=== PATIENT | female | born 1990 | race Two or more races ===

== ENCOUNTER 2018-03-14 14:04 | Emergency (ER) | payer OTHER ==
[2018-03-14] MEDS: ACETAMINOPHEN 500 MG TAB PO (15:01)
[2018-03-14 15:08] LABS: ADD MAN DIFF? NO
[2018-03-14 15:14] LABS: WHITE BLOOD COUNT 13.5 10^3/ul (4.8-10.8)
[2018-03-14 15:14] LABS: BASOPHIL # 0.1 10^3/ul (0.0-0.1); BASOPHILS % 0.4 % (0.0-2.0); EOSINOPHILS # 0.1 10^3/ul (0.0-0.5); EOSINOPHILS % 0.7 % (0.0-7.0); HEMATOCRIT 36.4 % (37.0-47.0); HEMOGLOBIN 12.5 g/dl (12.0-16.0); LYMPHOCYTES # 2.3 10^3/ul (0.8-2.9); LYMPHOCYTES % 16.8 % (15.0-51.0); MEAN CORPUSCULAR HEMOGLOBIN 31.9 pg (29.0-33.0); MEAN CORPUSCULAR HGB CONC 34.3 g/dl (32.0-37.0); MEAN CORPUSCULAR VOLUME 92.9 fl (82.0-101.0); MEAN PLATELET VOLUME 10.7 fl (7.4-10.4); MONOCYTES % 7.6 % (0.0-11.0); NEUTROPHILS % 74.1 % (39.0-77.0); PLATELET COUNT 218 10^3/UL (140-415); RED BLOOD COUNT 3.92 10^6/ul (4.20-5.40)
[2018-03-14 15:33] LABS: ADD UMIC YES; UR ASCORBIC ACID 40 mg/dL (NEGATIVE); UR BACTERIA FEW /HPF (NONE SEEN); UR BILIRUBIN (Dip) NEGATIVE (NEGATIVE); UR BLOOD (Dip) NEGATIVE (NEGATIVE); UR CLARITY CLOUDY (CLEAR); UR COLOR YELLOW (YELLOW); UR GLUCOSE (Dip) 1+ mg/dL (NEGATIVE); UR KETONES (Dip) NEGATIVE (NEGATIVE); UR LEUKOCYTE ESTERASE (Dip) NEGATIVE Leu/ul (NEGATIVE); UR MUCUS FEW /HPF (NONE SEEN); UR NITRITE (Dip) NEGATIVE (NEGATIVE); UR RBC 3 /HPF (0-5); UR SPECIFIC GRAVITY (Dip) 1.019 (1.003-1.030); UR SQUAMOUS EPITHELIAL CELL MODERATE /HPF (FEW); UR TOTAL PROTEIN (Dip) NEGATIVE (NEGATIVE); UR UROBILINOGEN (Dip) NEGATIVE (NEGATIVE); UR WBC 2 /HPF (0-5)
[2018-03-14 15:34] LABS: ALANINE AMINOTRANSFERASE 26 IU/L (13-69); ALBUMIN 3.5 g/dl (3.3-4.9); ALBUMIN/GLOBULIN RATIO 1.09; ALKALINE PHOSPHATASE 70 IU/L (42-121); ANION GAP 9 (5-13); ASPARTATE AMINO TRANSFERASE 27 IU/L (15-46); BILIRUBIN,INDIRECT 0.3 mg/dl (0-1.1); BILIRUBIN,TOTAL 0.3 mg/dl (0.2-1.3); BLOOD UREA NITROGEN 7 mg/dl (7-20); CALCIUM 8.7 mg/dl (8.4-10.2); CARBON DIOXIDE 21 mmol/L (21-31); CHLORIDE 105 mmol/L (97-110); CREATININE 0.57 mg/dl (0.44-1.00); Estimated GFR > 60 mL/min (>60); GLUCOSE 113 mg/dl (70-220); LIPASE 28 U/L (23-300); POTASSIUM 3.7 mmol/L (3.5-5.1); SODIUM 135 mmol/L (135-144); TOTAL PROTEIN 6.7 g/dl (6.1-8.1)
== END 2018-03-14 17:11 | disposition home or self-care (01) ==
LOC: FTE 14:04
DX: O26.892 Other specified pregnancy related conditions, second trimester (principal); O34.12 Maternal care for benign tumor of corpus uteri, second trimester; R10.9 Unspecified abdominal pain; Z3A.18 18 weeks gestation of pregnancy
CPT/HCPCS: 36415; 76805; 80053; 81001; 83690; 85025; 87086; 99284-25

== ENCOUNTER 2018-07-21 13:03 | Outpatient (CLI) | payer OTHER | END 2018-07-21 15:55 | disposition home or self-care (01) | LOC: OBT 13:03 → L-D 13:04 → OBT 15:55 | DX: O36.5930 Maternal care for other known or suspected poor fetal growth, third trimester, not applicable or unspecified (principal); Z3A.37 37 weeks gestation of pregnancy | CPT/HCPCS: 76815; 76818 ==

== ENCOUNTER 2018-08-10 20:44 | Inpatient (IN) | payer OTHER ==
[2018-08-10] MEDS ORDERED: CARBOPROST 250 MCG INJ IM (22:00)
[2018-08-10] MEDS ORDERED: MISOPROSTOL 200 MCG TAB PR (22:00)
[2018-08-10] MEDS ORDERED: LIDOCAINE 1% (MPF) 30 ML INJ INJ (22:00)
[2018-08-10] MEDS ORDERED: IBUPROFEN 600 MG TAB PO (22:00)
[2018-08-10] MEDS ORDERED: OXYTOCIN 30 UNITS/LR 500 ML IV ×3 (22:00)
[2018-08-10] MEDS ORDERED: METHYLERGONOVINE 0.2 MG INJ IM (22:00)
[2018-08-10 22:07] LABS: ADD MAN DIFF? NO
[2018-08-10 22:10] LABS: BASOPHILS % 0.4 % (0.0-2.0); EOSINOPHILS # 0.1 10^3/ul (0.0-0.5); EOSINOPHILS % 0.7 % (0.0-7.0); HEMATOCRIT 40.3 % (37.0-47.0); HEMOGLOBIN 14.3 g/dl (12.0-16.0); LYMPHOCYTES # 2.3 10^3/ul (0.8-2.9); LYMPHOCYTES % 23.9 % (15.0-51.0); MEAN CORPUSCULAR HEMOGLOBIN 32.6 pg (29.0-33.0); MEAN CORPUSCULAR HGB CONC 35.5 g/dl (32.0-37.0); MEAN CORPUSCULAR VOLUME 91.8 fl (82.0-101.0); MONOCYTE # 0.5 10^3/ul (0.3-0.9); MONOCYTES % 5.6 % (0.0-11.0); NEUTROPHIL # 6.6 10^3/ul (1.6-7.5); NEUTROPHILS % 68.7 % (39.0-77.0); PLATELET COUNT 160 10^3/UL (140-415); RED BLOOD COUNT 4.39 10^6/ul (4.20-5.40); RED CELL DISTRIBUTION WIDTH 12.7 % (11.5-14.5)
[2018-08-10 22:10] LABS: WHITE BLOOD COUNT 9.6 10^3/ul (4.8-10.8)
[2018-08-10] MEDS: LACTATED RINGER'S 1,000 ML IV ×2 (22:11→23:23)
[2018-08-10 22:29] LABS: INR 0.81; PROTIME 11.3 Sec (11.9-14.9); PT RATIO 0.9
[2018-08-10 22:30] LABS: PARTIAL THROMBOPLASTIN TIME 28.2 Sec (23.0-35.0)
[2018-08-10] MEDS: BUTORPHANOL 2 MG INJ IV (23:23)
[2018-08-11] MEDS: OXYTOCIN 30 UNITS/LR 500 ML IV ×2 (03:05→03:11)
[2018-08-11 03:37] LABS: HEPATITIS B SURFACE ANTIGEN NEGATIVE (NEGATIVE)
[2018-08-11] MEDS ORDERED: MISOPROSTOL 200 MCG TAB PR (05:30)
[2018-08-11] MEDS ORDERED: HYDROCODONE/APAP (5/325) TAB PO (05:30)
[2018-08-11] MEDS ORDERED: DIBUCAINE 1% 30 GM OINT TOP (05:30)
[2018-08-11] MEDS ORDERED: METHYLERGONOVINE 0.2 MG INJ IM (05:30)
[2018-08-11] MEDS ORDERED: ACETAMINOPHEN 325 MG TAB PO (05:30)
[2018-08-11] MEDS ORDERED: CARBOPROST 250 MCG INJ IM (05:30)
[2018-08-11] MEDS ORDERED: OXYTOCIN 30 UNITS/LR 500 ML IV (05:30)
[2018-08-11] MEDS ORDERED: WITCH HAZEL/GLYCERIN PAD PR (05:30)
[2018-08-11] MEDS ORDERED: BENZOCAINE 20% 56 ML SPRAY TOP (05:30)
[2018-08-11] MEDS: IBUPROFEN 600 MG TAB PO ×4 (06:00→23:33)
[2018-08-11] MEDS: LACTATED RINGER'S 1,000 ML IV* ×2 (09:00→13:19)
[2018-08-11] MEDS: SENNA/DOCUSATE NA (8.6MG/50MG) TAB PO ×2 (09:55→21:14)
[2018-08-11 16:45] LABS: RAPID PLASMA REAGIN NONREACTIVE (NR)
[2018-08-12] MEDS: IBUPROFEN 600 MG TAB PO ×4 (05:50→23:59)
[2018-08-12] MEDS: SENNA/DOCUSATE NA (8.6MG/50MG) TAB PO ×2 (09:26→23:59)
[2018-08-12 09:40] LABS: ADD MAN DIFF? NO
[2018-08-12 09:44] LABS: WHITE BLOOD COUNT 14.2 10^3/ul (4.8-10.8)
[2018-08-12 09:44] LABS: BASOPHILS % 0.3 % (0.0-2.0); EOSINOPHILS # 0.1 10^3/ul (0.0-0.5); EOSINOPHILS % 0.8 % (0.0-7.0); HEMATOCRIT 38.9 % (37.0-47.0); HEMOGLOBIN 13.3 g/dl (12.0-16.0); LYMPHOCYTES # 2.5 10^3/ul (0.8-2.9); LYMPHOCYTES % 17.5 % (15.0-51.0); MEAN CORPUSCULAR HGB CONC 34.2 g/dl (32.0-37.0); MEAN CORPUSCULAR VOLUME 93.7 fl (82.0-101.0); MEAN PLATELET VOLUME 11.5 fl (7.4-10.4); MONOCYTE # 0.8 10^3/ul (0.3-0.9); MONOCYTES % 5.3 % (0.0-11.0); NEUTROPHIL # 10.7 10^3/ul (1.6-7.5); NEUTROPHILS % 75.4 % (39.0-77.0); PLATELET COUNT 172 10^3/UL (140-415); RED BLOOD COUNT 4.15 10^6/ul (4.20-5.40); RED CELL DISTRIBUTION WIDTH 13.2 % (11.5-14.5)
[2018-08-13] MEDS: IBUPROFEN 600 MG TAB PO ×2 (06:16→12:20)
[2018-08-13] MEDS: DIPHTH/TET/ACEL PERTUSS (ADULT) 0.5 ML VIAL IM* (09:00)
[2018-08-13] MEDS: SENNA/DOCUSATE NA (8.6MG/50MG) TAB PO (09:00)
== END 2018-08-13 18:21 | disposition home or self-care (01) | DRG 807 ==
LOC: OBT 20:44 → L-D 08-11 01:17 → PP1 08-11 05:11 → OBT 21:30 → L-D 21:30
PROVIDERS: Obstetrics & Gynecology
PROC: 10E0XZZ Delivery of Products of Conception, External Approach (ICD-10-PCS; principal; 2018-08-11)
DX: O69.81X0 Labor and delivery complicated by cord around neck, without compression, not applicable or unspecified (principal); Z37.0 Single live birth; Z3A.39 39 weeks gestation of pregnancy
CPT/HCPCS: 85025; 85610; 85730; 86592; 86885; 86900; 86901; 87340